=== PATIENT | female | born 1950 | race Caucasian/White ===

== ENCOUNTER → 2018-12-17 | Outpatient (CLI) | payer BC, OTHER ==
[~2018-12-17] MED LIST: AFLURIA 2045 MCG/010 IM; ASPIR 8181 MG PO; ATORVASTATIN CA40 MG PO; AZULFIDINE500 M1 PO; COREG3.125 MG PO; COZAAR 25 MG TA25 MG PO; DEXILANT60 MG PO; EFFIENT10 MG PO; HUMIRA40 MG/0.1 SQ; HYDROCODONE-AP1 EAC6 PO; MORPHINE 44 MG/1 ML IV PUSH; ONDANSETRON HCL4 M2 PO; TYLENOL325 MG PO; ZOLPIDEM TARTRA10 MG PO
== END ==
LOC: CAT 10:25
DX: K80.20 Calculus of gallbladder without cholecystitis without obstruction (principal); K42.9 Umbilical hernia without obstruction or gangrene; N20.0 Calculus of kidney; I70.0 Atherosclerosis of aorta; R31.9 Hematuria, unspecified; M25.78 Osteophyte, vertebrae; Z90.710 Acquired absence of both cervix and uterus

== ENCOUNTER → 2020-09-26 | Outpatient (CLI) | payer OTHER | LOC: SJCVC 13:13 | PROVIDERS: ATTEND Internal Medicine | DX: R94.31 Abnormal electrocardiogram [ECG] [EKG] (principal); I25.5 Ischemic cardiomyopathy; I50.20 Unspecified systolic (congestive) heart failure; E78.5 Hyperlipidemia, unspecified; I44.7 Left bundle-branch block, unspecified; J18.9 Pneumonia, unspecified organism; Z88.5 Allergy status to narcotic agent; Z88.8 Allergy status to other drugs, medicaments and biological substances; Z87.891 Personal history of nicotine dependence; Z79.82 Long term (current) use of aspirin; Z79.899 Other long term (current) drug therapy; Z72.89 Other problems related to lifestyle; Z98.890 Other specified postprocedural states; Z85.828 Personal history of other malignant neoplasm of skin; Z80.1 Family history of malignant neoplasm of trachea, bronchus and lung ==

== ENCOUNTER → 2020-10-01 | Outpatient (CLI) | payer OTHER | LOC: SJCVCIMAG 14:08 | PROVIDERS: ATTEND Internal Medicine | DX: I44.7 Left bundle-branch block, unspecified (principal); I25.10 Atherosclerotic heart disease of native coronary artery without angina pectoris; I25.5 Ischemic cardiomyopathy; R06.09 Other forms of dyspnea ==

== ENCOUNTER → 2021-02-08 | Outpatient (CLI) | payer OTHER | LOC: CAT 14:13 | PROVIDERS: ATTEND Family Medicine | DX: Z12.2 Encounter for screening for malignant neoplasm of respiratory organs (principal); I70.0 Atherosclerosis of aorta; R91.8 Other nonspecific abnormal finding of lung field; Z87.891 Personal history of nicotine dependence ==

== ENCOUNTER → 2021-09-26 | Outpatient (CLI) | payer OTHER | LOC: SJCVC 13:20 | PROVIDERS: ATTEND Internal Medicine | DX: R94.31 Abnormal electrocardiogram [ECG] [EKG] (principal); I44.7 Left bundle-branch block, unspecified; I25.5 Ischemic cardiomyopathy; I11.0 Hypertensive heart disease with heart failure; I50.20 Unspecified systolic (congestive) heart failure; E78.5 Hyperlipidemia, unspecified; Z87.891 Personal history of nicotine dependence; Z72.89 Other problems related to lifestyle; Z88.8 Allergy status to other drugs, medicaments and biological substances; Z79.82 Long term (current) use of aspirin; Z79.899 Other long term (current) drug therapy ==